=== PATIENT | female | born 1955 | race Caucasian/White ===

== ENCOUNTER 2020-12-27 15:24 | Outpatient (CLI) | payer MEDICARE | END 2020-12-27 15:25 | disposition home or self-care (01) | LOC: NAV RAD 15:24 | PROVIDERS: ATTEND Nurse Practitioner Family | DX: S19.9XXA Unspecified injury of neck, initial encounter (principal); S29.9XXA Unspecified injury of thorax, initial encounter; M47.812 Spondylosis without myelopathy or radiculopathy, cervical region | CPT/HCPCS: 72040 ==